=== PATIENT | female | born 1985 | race Caucasian/White ===

== ENCOUNTER 2024-12-17 07:44 | Day surgery (SDC) | payer MEDICAID, SELFPAY ==
[2024-12-17] VITALS (13 sets, daily range): BP systolic 110–140; BP diastolic 68–91; PULSE 63–97; RESP 12–16; TEMP 36.3–36.6; O2SAT 98–100
--- NOTE | 2024-12-17 08:17 | W.PM.H&PU ---
History & Physical Update History & Physical Update H&P Reviewed and patient assessed: The following changes are noted below H&P Updates: Sandi is a Rastafari and in the event of life-threatening bleeding, she refuses blood transfusion. She did sign the paperwork indicating this. We did discuss that I think life-threatening bleeding for this operation is highly unlikely, however we discussed alternative resuscitation methods such as albumin, which she refused as well.
[2024-12-17 08:19] LABS: Ur HCG Qualitative* Negative (Negative)
--- NOTE | 2024-12-17 08:19 | P.GSOP_ITS ---
Operative Note Date of procedure: 12/17/24 Pre-op diagnosis: Symptomatic internal and external hemorrhoids Post-op diagnosis: Same Type of Procedure: Two-column hemorrhoidectomy Indications: The patient is a 39-year-old female who presented to clinic with a several year history of hemorrhoidal symptoms, particularly discomfort with tissue that protrudes from the anal canal. Her symptoms did not resolve with conservative management and therefore after discussion of options she elected to proceed with hemorrhoidectomy. Of note, patient does refuse blood transfusion and albumin because of her mandaeism beliefs. We discussed that her risk of significant bleeding for the procedure is low. Procedure Description: After discussing the risks and benefits of the procedure, the patient signed informed consent.? The patient was brought to the operating room and a spinal anesthetic was administered. She was then placed on the operating table in prone lb-knife position.? Care was taken to pad the patient's pressure points.?? The patient was then given sedation by anesthesia.?? The operative site was then prepped and draped in the usual sterile fashion.? A time-out was then performed. I began by performing digital rectal exam. No masses were palpable. The patient had a external hemorrhoidal skin tag in the anterior location. This was nearly contiguous with a small hypertrophied anal papilla in the anal canal. I began here. I incised the anoderm using cautery and, staying in the submucosal plane, superficial to the sphincter complex excised the small internal hemorrhoidal column containing the hypertrophied papilla. This was sent to pathology as anterior hemorrhoidal tissue. Then, using a 3-0 chromic suture and starting at the apex of the incision within the anal canal, I ran a locking hemostatic stitch up to the anal verge and back down. The opening at the i ncision on the anal derm was left open. This was only a small area. The area was hemostatic. Attention was then turned posteriorly where she had a large internal hemorrhoidal column in the right posterior with again what appeared to be hypertrophied papilla that did appear to be large enough to prolapse. Adjacent to this in the midline was a smaller hypertrophied papilla. I began by excising the internal hemorrhoidal column, again using cautery to incise the mucosa and staying in a submucosal plane. This tissue was sent to pathology as posterior hemorrhoidal tissue. I then oversewed the incision within the locking 3-0 chromic suture. Hemostasis appeared excellent. As I then elected to perform a small excision of the additional smaller hypertrophied papilla in the midline. This was excised with cautery and oversewn with 3-0 chromic. This tissue was also sent as posterior hemorrhoidal tissue with the larger hemorrhoidal excision. Hemostasis appeared excellent at this point. I did place a piece of Surgicel over the suture lines within the anal canal. I then injected a mixture of bupivacaine and liposomal bupivacaine, 1st performing a pudendal block bilaterally and then injecting around the suture lines on the anal derm. Gauze was then applied. ? The patient was then woken and transported to the recovery area in stable condition. ? The patient tolerated the procedure well. Findings: 1. External hemorrhoidal tissue anteriorly contiguous with an internal hemorrhoidal column with hypertrophied anal papilla 2. Prolapsing external hemorrhoidal tissue in the right posterior with adjacent but not contiguous posterior midline hypertrophied anal papilla Anesthesia: MAC Surgeon: Barbra Lofton MD Estimated blood loss (mL): 5 Specimen: Other Additional Specimen Information: 1. Anterior hemorrhoidal tissue 2. Posterior hemorrhoidal tissue Condition: stable Disposition: PACU
[2024-12-17] MEDS: SODIUM CHLORIDE 0.9 % (FLUSH) 10 ML SYRINGE IVF (08:33)
[2024-12-17] MEDS: LACTATED RINGERS 1000 ML 1,000 ML 100 ML IV (08:33)
[2024-12-17] MEDS: BUPIVACAINE LIPOSOME 133 MG/10 ML INJ INFILTRATI (10:05)
[2024-12-17] MEDS: BUPIVACAINE 0.5% 30 ML INJECTION (10:05)
--- NOTE | 2024-12-17 10:17 | P.ANES_ITS ---
Anesthesia Charges Start Date/Time Anesthesia Start Date: 12/17/24 Anesthesia Start Time: 09:01 Stop Date/Time Anesthesia Stop Date: 12/17/24 Anesthesia Stop Time: 10:18 Coding CPT Codes CPT Codes: ANESTH ANORECTAL SURGERY - 78290 ([id number]) P2 - PATIENT W/MILD SYST DISEASE, QZ - CELL SUPPORT OPERATOR SVC W/O ENERGY AUDIT ADVISOR BY
--- NOTE | 2024-12-17 10:17 | W.ANESCHARGE ---
Anesthesia Charges Start Date/Time Anesthesia Start Date: 12/17/24 Anesthesia Start Time: 09:01 Stop Date/Time Anesthesia Stop Date: 12/17/24 Anesthesia Stop Time: 10:18 Coding CPT Codes CPT Codes: ANESTH ANORECTAL SURGERY - 32919 ([id number]) P2 - PATIENT W/MILD SYST DISEASE, QZ - SLATE SPLITTING SUPERVISOR SVC W/O BISCUITWARE BRUSHER BY
--- NOTE | 2024-12-17 11:25 | SUR.PHASEII ---
Dr. Serrano in room to speak with patient.
[2024-12-17] MEDS: ACETAMINOPHEN 325 MG TABLET 650 MG PO (11:30)
[2024-12-17] MEDS: HYDROCODONE-ACETAMIN 5-325 MG 1 TAB PO (11:30)
--- NOTE | 2024-12-17 11:35 | SUR.PHASEII ---
1115: Call light on patient states she feels like she needs to have a BM. Field Observer described nature and location of procedure may give her sensation of needing to have BM. Patient would like to use restroom. Spinal no longer ineffect. Patient ambulatory to restroom with standbyassist. Voided. No BM. Returned to room. Declined ice pack. Pain 4-5/10. Pain medicaiton administered-see emar. Patient states she put the ice pack in place and it feels like it may be better.
== END 2024-12-17 12:30 | disposition home or self-care (01) ==
LOC: OR 07:53
PROVIDERS: Nurse Anesthetist, Certified Registered; PCP Physician Assistant; Visit Provider Surgery
PROC: (CPT 46260; principal; 2024-12-17 09:00)
DX: K64.8 Other hemorrhoids (principal); K64.4 Residual hemorrhoidal skin tags; K62.89 Other specified diseases of anus and rectum
CPT/HCPCS: 46260; 00902; 81025; 88304; A9270; J0665; J0666; J1100; J2250; J2405; J2704; J3010; J7120